=== PATIENT | female | born 1970 | race Hispanic/Latino ===

== ENCOUNTER 2018-11-02 13:35 | Emergency (ER) | payer SELFPAY ==
[2018-11-02] MEDS ORDERED: methylPREDNISolone Sod Succ/PF 125 MG/2 ML VIAL ONE (14:40)
== END 2018-11-02 15:02 | disposition home or self-care (01) ==
LOC: ERS 13:35
DX: L25.9 Unspecified contact dermatitis, unspecified cause (principal)
CPT/HCPCS: 96372; 99282; J2930

== ENCOUNTER 2022-03-04 08:03 | Outpatient (CLI) | payer BC | END 2022-03-04 08:04 | disposition home or self-care (01) | LOC: BICMAMMO 08:03 | PROVIDERS: ATTEND Physician Assistant | DX: N64.59 Other signs and symptoms in breast (principal) | CPT/HCPCS: 77066; G0279 ==

== ENCOUNTER → 2022-05-24 | Day surgery (SDC) | payer OTHER, SELFPAY | END | disposition home or self-care (01) | LOC: BICMRI 12:59 | PROVIDERS: ATTEND Physician Assistant | DX: N64.59 Other signs and symptoms in breast (principal); Z53.9 Procedure and treatment not carried out, unspecified reason | CPT/HCPCS: 19085 ==